=== PATIENT | female | born 1980 | race Asian ===

== ENCOUNTER 2021-09-09 07:34 | Emergency (ER) | payer OTHER ==
[~2021-09-09] VITALS: Ht 157.5 cm; Wt 52.3 kg
[2021-09-09 07:36] VITALS: TEMP 98.3
[2021-09-09 07:51] LABS: BASO # 0.1 K/mm3 (0.0-0.2); BASO % 0.9 % (0.0-2.0); EOS % 0.3 % (0-4.0); GRAN # 6.9 K/mm3 (1.4-6.5); GRAN % 74.7 % (42.2-75.2); HEMATOCRIT 37.8 % (37.0-47.0); HEMOGLOBIN 12.7 g/dl (12.5-16.0); LYMPH # 1.7 K/mm3 (1.2-3.4); LYMPH % 18.3 % (20.0-51.0); MEAN CELL VOLUME 86 fl (80.0-100.0); MEAN CORPUSCULAR HEMOGLOBIN 29 pg (27.0-31.0); MEAN CORPUSCULAR HGB CONC 34 g/dl (33.0-37.0); MEAN PLATELET VOLUME 9.8 fl (7.4-10.4); MONO # 0.5 K/mm3 (0.1-0.6); MONO % 5.6 % (1.7-9.3); PLATELET COUNT 241 K/mm3 (130-400); RED BLOOD COUNT 4.42 M/mm3 (4.10-5.30); REDCELL DISTRIBUTION WIDTH-CV 13.2 % (11.5-14.5)
[2021-09-09 08:15] LABS: ALBUMIN 4.4 gm/dL (3.5-5.0); BILIRUBIN,TOTAL 0.6 mg/dL (0.2-1.2); C-REACTIVE PROTEIN 0.21 mg/dL (0.00-0.50); CALCIUM 9.2 mg/dL (8.4-10.2); CREATININE, serum 0.8 mg/dL (0.57-1.11); TOTAL PROTEIN 7.7 gm/dL (6.2-8.1)
[2021-09-09] MEDS ORDERED: CIPRO 500MG TA500 MG PO (09:36)
[2021-09-09] MEDS ORDERED: FLAGYL500 MG PO (09:36)
[2021-09-09] MEDS ORDERED: PERCOCET 325 MG1 TA2 PO ×2 (09:36)
[2021-09-09 10:00] VITALS: BP 120/61; PULSE 80
== END 2021-09-09 10:00 | disposition home or self-care (01) ==
LOC: COL.ER 07:34
PROVIDERS: Family Medicine
DX: K52.9 Noninfective gastroenteritis and colitis, unspecified (principal); Z88.5 Allergy status to narcotic agent
CPT/HCPCS: J2270; J2405; J7120; Q9967

== ENCOUNTER 2023-01-21 16:08 | Emergency (ER) | payer OTHER ==
[~2023-01-21] VITALS: Ht 157.5 cm; Wt 52.3 kg
[~2023-01-21 16:08] MED LIST: CIPRO 500MG TA500 MG PO; FLAGYL500 MG PO; PERCOCET 325 MG1 TA2 PO
[2023-01-21 16:18] VITALS: TEMP 98.3
[2023-01-21 17:25] VITALS: BP 109/71; PULSE 75
== END 2023-01-21 17:25 | disposition home or self-care (01) ==
LOC: COL.ER 16:08
DX: S16.1XXA Strain of muscle, fascia and tendon at neck level, initial encounter (principal); R51.9 Headache, unspecified; V43.52XA Car driver injured in collision with other type car in traffic accident, initial encounter; Y92.410 Unspecified street and highway as the place of occurrence of the external cause